=== PATIENT | female | born 1945 | race Caucasian/White ===

== ENCOUNTER → 2016-04-12 | Outpatient (CLI) | payer MEDICARE, MEDICAID | LOC: RAD 14:01 | PROVIDERS: ATTEND Internal Medicine Hematology & Oncology | DX: C50.511 Malignant neoplasm of lower-outer quadrant of right female breast (principal) ==

== ENCOUNTER → 2016-06-17 | Outpatient (REF) | payer MEDICARE, MEDICAID ==
[~2016-06-17] MED LIST: ACYC800T PO; ALBU2.5V12 INH; ALPR.5T PO; AMOX1TAB12 PO; AMOX875T47 PO; ASPI-586 PO; ATOR40TA59 PO; AZIT250T5 PO; AZIT500T4 PO; BECL8.7A5 IH; BECL8.7A6 IH; BUDE6HFA IH; BUDE6HFA INH; BUSP10TA95 PO; CALC-8 PO; CALC500T55 PO; CALC600T12 PO; CEPH-331 PO; CHOL200014 PO; CITA10TA4 PO; CYAN10007 PO; D50KC PO; DEXA4TAB PO; DOCU-243 PO; DOXY100C42 PO; DOXY100T41 PO; DUONEB 0.5 MG-33 ML IH; ERGO400T3 PO; ESCI10TA PO; FISH OIL500 M1 PO; FLUC100T6 PO; FLUO90CA4 PO; GFN600TCR PO; HYDR-3702 PO; HYDR-3811 PO; INDA1.25 PO; INDO50CA; LETR2.5T5 PO; LEVE250T18 PO; LEVE500T6 PO; LEVO175T PO; LEVO200T PO; LISI5TAB14 PO; LORA10TA7 PO; LSNP10T PO; LSNP20T PO; LVF500T PO; LVT.15T PO; MAGN400T26 PO; METH4TAB27 PO; MIRT15TA98 PO; NCT21TD TD; NITR-68 PO; NS.65NA45; OMEP20CA12 PO; OMEP40CA36 PO; OMG1KC PO; ONDA8TAB9 PO; ONDAN4ODT PO; OXYC1TAB6 PO; OXYC1TAB87 PO; OXYGEN; POLY17PO2 PO; POLY1DRO2 OU; POTA-57 PO; POTA10TA10 PO; POTA20TA15 PO; PRM25T PO; PROC5TAB PO; QUET100T29 PO; SENN1TAB6 PO; SERT100T8 PO; SRTR100T PO; SULF-228 PO; TIOT18CA INH; TOPI-53 PO; TOPI25CA2 PO; TRAZ100T92 PO; TRM50T PO; VARE1TAB22 PO; [UNRECOGNIZED DRUG - CODE] PO
[2016-06-17 11:55] LABS: MEAN CORPUSCULAR VOLUME 95 FL (80-100); MEAN PLATELET VOLUME 9.7 FL (6.0-9.5); PLATELET COUNT 147 10^3uL (150-450); WHITE BLOOD COUNT 4.25 10^3uL (4.0-11.0)
[2016-06-17 11:57] LABS: MEAN CORPUSCULAR HEMOGLOBIN 31.3 PG (26.0-34.0)
[2016-06-17 12:10] LABS: ALBUMIN 3.9 g/dL (3.4-5.0); CALCULATED IONIZED CALCIUM 4.2 mg/dL (3.8-4.6); MAGNESIUM* 1.7 mg/dL (1.6-2.3); PHOSPHORUS 4.6 mg/dL (2.4-4.9); TOTAL PROTEIN 6.7 g/dL (6.4-8.5)
[2016-06-17 12:17] LABS: BAND NEUTROPHILS % 1 % (0-6); EOSINOPHILS % 0 % (0-4); LYMPHOCYTES # 1.4 #; MONOCYTES # 0.2 #; MONOCYTES % 6 % (3-11); RBC MORPH NORMAL (NORMAL); SEGMENTED NEUTROPHILS % 60 % (51-67); TOTAL CELLS COUNTED 100
== END ==
LOC: LAB 11:30
PROVIDERS: ATTEND Internal Medicine Hematology & Oncology
DX: C50.919 Malignant neoplasm of unspecified site of unspecified female breast (principal); Z79.899 Other long term (current) drug therapy
CPT/HCPCS: 80053; 82306; 83615; 83735; 84100; 85007; 85027; 86300